=== PATIENT | female | born 1950 | race Caucasian/White ===

== ENCOUNTER → 2023-06-18 | Outpatient (CLI) | payer MEDICARE ==
[2023-06-18 12:26] LABS: INR 0.9 (<1.2); Prothrombin Time 9.9 sec (9.0-12.0)
--- NOTE | 2023-06-18 12:27 | XR ---
EXAMINATION TYPE: XR chest 2V DATE OF EXAM: 06/18/2023 COMPARISON: None HISTORY: 72-year-old female presurgical testing TECHNIQUE: PA and lateral views FINDINGS: The cardiomediastinal silhouette, aorta, and pulmonary vasculature are within normal limits. There ar e some strandy atelectasis at the inferior lingula. Mild hyperinflation. Otherwise, lungs and pleural spaces are clear. IMPRESSION: COPD. Some strandy atelectasis at the left base. Otherwise, no acute process seen.
[2023-06-18 16:35] LABS: Basophils # (A) 0.04 X 10*3/uL (0.00-0.10); Basophils % (A) 0.6 %; Eosinophils # (A) 0.17 X 10*3/uL (0.04-0.35); Eosinophils % (A) 2.6 %; HCT 38.4 % (37.2-46.3); HGB 12.3 d/dL (12.0-15.0); Lymphocytes # (A) 0.99 X 10*3/uL (0.90-5.00); Lymphocytes % (A) 15.1 %; MCH 30.9 pg (27.0-32.0); MCV 96.5 FL (80.0-97.0); Mean Platelet Volume 10.6 FL (9.5-12.2); Monocytes % (A) 9.1 %; NRBC Per 100 WBC 0 X 10*3/uL (0.00-0.01); Neutrophils # (A) 4.75 X 10*3/uL (1.80-7.70); Neutrophils % (A) 72.3 %; Platelet Count 144 X 10*3/uL (140-440); RBC 3.98 X 10*6/uL (4.10-5.20); WBC 6.57 X 10*3/uL (4.50-10.00)
[2023-06-18 16:45] LABS: BUN/Creat Ratio 21.25 Ratio (12.00-20.00); Calcium 9.6 mg/dL (8.7-10.3); Carbon Dioxide 25.1 mmol/L (21.6-31.8); Chloride 103 mmol/L (96-109); Glucose 112 mg/dL (70-110); Potassium 3.7 mmol/L (3.5-5.5); Sodium 141 mmol/L (135-145)
[2023-06-19 02:30] LABS: Appearance,Urine Clear (Clear); Bilirubin,Urine Negative (Negative); Blood,Urine Moderate (Negative); Color,Urine Yellow (Yellow); Ketones,Urine Negative (Negative); Nitrite,Urine Negative (Negative); PH, Urine 6.5; Specific Gravity,Urine 1.011 (1.001-1.030)
[2023-06-19 03:49] LABS: Bacteria,Urine None Seen (None Seen)
== END | disposition home or self-care (01) ==
LOC: LABPAT 10:24
PROVIDERS: ATTEND Orthopaedic Surgery Orthopaedic Surgery of the Spine
DX: Z01.818 Encounter for other preprocedural examination (principal); J44.9 Chronic obstructive pulmonary disease, unspecified; M43.16 Spondylolisthesis, lumbar region
CPT/HCPCS: 71046; 80048; 81001; 85025; 85610; 85730; 87070; 93005

== ENCOUNTER → 2023-07-06 | Outpatient (CLI) | payer MEDICARE ==
[2023-07-06 10:47] LABS: INR 0.9 (<1.2); Partial Thromboplastin Time 24.2 sec (22.0-30.0); Prothrombin Time 10.3 sec (10.0-12.5)
[2023-07-06 15:55] LABS: BUN/Creat Ratio 18.29 Ratio (12.00-20.00); Blood Urea Nitrogen 12.8 mg/dL (9.0-27.0); Calcium 9.6 mg/dL (8.7-10.3); Chloride 101 mmol/L (96-109); Glucose 117 mg/dL (70-110); Potassium 3.9 mmol/L (3.5-5.5); Sodium 138 mmol/L (135-145)
[2023-07-06 16:18] LABS: Basophils # (A) 0.03 X 10*3/uL (0.00-0.10); Basophils % (A) 0.5 %; Eosinophils # (A) 0.13 X 10*3/uL (0.04-0.35); Eosinophils % (A) 2.1 %; HCT 35.4 % (37.2-46.3); HGB 11.8 d/dL (12.0-15.0); Lymphocytes # (A) 1.18 X 10*3/uL (0.90-5.00); MCH 31.5 pg (27.0-32.0); MCHC 33.3 d/dL (32.0-37.0); MCV 94.4 FL (80.0-97.0); Mean Platelet Volume 10.2 FL (9.5-12.2); Monocytes # (A) 0.71 X 10*3/uL (0.20-1.00); Monocytes % (A) 11.4 %; NRBC Per 100 WBC 0 X 10*3/uL (0.00-0.01); Neutrophils # (A) 4.13 X 10*3/uL (1.80-7.70); Neutrophils % (A) 66.5 %; Platelet Count 161 X 10*3/uL (140-440); RBC 3.75 X 10*6/uL (4.10-5.20); RDW 14.2 % (11.5-14.5); WBC 6.21 X 10*3/uL (4.50-10.00)
[2023-07-06 16:36] LABS: Appearance,Urine Clear (Clear); Bilirubin,Urine Negative (Negative); Blood,Urine Moderate (Negative); Color,Urine Yellow (Yellow); Ketones,Urine Negative (Negative); Nitrite,Urine Negative (Negative); PH, Urine 6.5; Specific Gravity,Urine 1.006 (1.001-1.030); Urobilinogen,Urine 0.2 E.U./DL
[2023-07-06 17:06] LABS: Bacteria,Urine None Seen (None Seen)
== END | disposition home or self-care (01) ==
LOC: LABWHC1 09:02
PROVIDERS: ATTEND Orthopaedic Surgery Orthopaedic Surgery of the Spine
DX: Z01.812 Encounter for preprocedural laboratory examination (principal); M43.16 Spondylolisthesis, lumbar region
CPT/HCPCS: 36415; 80048; 81001; 85025; 85610; 85730; 86850; 86900; 86901

== ENCOUNTER 2023-07-15 05:37 | Observation (INO) | payer MEDICARE ==
[2023-07-10 10:40] VITALS: BMI 23.1
[~2023-07-15 05:37] MED LIST: ceFAZolin 1,000 MG in SODIUM CHLORIDE 0.9% IRRIGATIO 1,000 ML IRRIGATION PRN
[2023-07-15] MEDS ORDERED: LIDOCAINE 1% (10MG/ML) FOR IV START INTRADERMA PRN (05:51)
[2023-07-15] MEDS: LACTATED RINGERS 1,000 ML IV SCH ×3 (06:50→22:14)
[2023-07-15] MEDS: ONDANSETRON 4 MG/2 ML VIAL IVP ONE ×2 (07:10→14:48)
[2023-07-15] MEDS ORDERED: LIDOCAINE 1% INJ 10MG/ML (20 ML MDV) ONE (07:28)
[2023-07-15] MEDS ORDERED: fentaNYL (PF) 50 MCG/ML 2 ML AMP ONE (07:28)
[2023-07-15] MEDS ORDERED: HYDROmorphone (PF) 1 MG/ML ONE (07:28)
[2023-07-15] MEDS ORDERED: ePHEDrine 50 MG/ML 1 ML VIAL ONE (07:28)
[2023-07-15] MEDS ORDERED: PROPOFOL 10 MG/ML 20 ML VIAL IV ONE (07:28)
[2023-07-15] MEDS ORDERED: SUCCINYLCHOLINE CHLORIDE 200 MG/10 ML VIAL IV ONE (07:28)
[2023-07-15] MEDS ORDERED: ROCURONIUM 10 MG/ML (5 ML VIAL) IV ONE (07:28)
[2023-07-15] MEDS ORDERED: MIDAZOLAM 2 MG/2 ML VIAL ONE (07:28)
[2023-07-15] MEDS ORDERED: THROMBIN (BOVINE) 5,000 UNIT VIAL TOPICAL ONE (07:30)
[2023-07-15] MEDS ORDERED: LIDOCAINE 0.5%-EPI 1:200,000 50 ML VIAL SQ ONE (07:30)
[2023-07-15] MEDS ORDERED: GELATIN SPONGE,ABSORB (LARGE) 1 EACH SPONGE TOPICAL ONE (07:30)
[2023-07-15] MEDS ORDERED: LACTATED RINGERS 1,000 ML IV ONE (10:13)
[2023-07-15] MEDS ORDERED: BENZOCAINE/MENTHOL LOZENG 1 EACH LOZENGE MUCOUS MEM PRN (10:31)
[2023-07-15] MEDS ORDERED: HYDROmorphone 0.5 MG/0.5 ML SYRINGE IVP PRN (10:31)
[2023-07-15] MEDS ORDERED: HYDROmorphone 1 MG/ML 1 ML SYRINGE IVP PRN (10:31)
[2023-07-15] MEDS ORDERED: ONDANSETRON 4 MG/2 ML VIAL IVP PRN (10:31)
[2023-07-15] MEDS ORDERED: CYCLOBENZAPRINE 10 MG TAB PO PRN (10:31)
[2023-07-15] MEDS ORDERED: MAGNESIUM HYDROXIDE 2,400 MG/30 ML CUP PO PRN (10:31)
--- NOTE | 2023-07-15 10:39 | P.OP ---
Date of Procedure: 07/15/23 Preoperative Diagnosis: Grade 3 spondylolisthesis L4 5, degenerative disc disease, spinal stenosis, lower extremity radiculopathy, low back pain Postoperative Diagnosis: Same Anesthesia: GETA Pathology: none sent Condition: stable Disposition: PACU Description of Procedure: DESCRIPTION OF PROCEDURE(S): BRIEF OPERATIVE NOTE Preoperative Diagnosis: Grade 3 spondylolisthesis L4 5, degenerative disc disease, spinal stenosis, lower extremity radiculopathy, low back pain Postoperative Diagnosis: Same Procedure: Laminectomy and decompression L4 5 with wide bilateral foraminotomy for decompression on that for preparation for fusion Computer CT navigation aided Minimally invasive Posterior lateral decompression and fusion L4 5 Minimally invasive Transforaminal lumbar interbody fusion for a 360 fusion L4 5 Discectomy for decompression beyond that for preparation for fusion L4 5 Placement of interbody graft L4 5 Use of computer navigation for fusion Local autogenous bone grafting Aspiration of bone marrow from the vertebral body pedicle of L4 on the right Use of bone graft extenders Surgeon: Dr. Godinez Plant Maintenance Supervisor: Aj CARDOZA who is present throughout the entire the case persistence during positioning, dissection, exposure, visualization, and all crucial elements of the case as well as closure. Anesthesia: General anesthesia Estimated blood loss: Approximately 150 mL Complications: None apparent Components implanted: [id number] minimally invasive [place] pedicle screw system withscrews measuring 6.5 mm in diameter to rods one [place] interbody cage with 10 mL of osteo amp bio4 bone graft substitute and 30 mL of the BX bone fibers to supplement the local autogenous bone graft and bone marrow aspirate Disposition: To recovery room in good stable condition. OPERATIVE INDICATIONS The patient has had severe issues at their lower extremity in her lower back over the past several years with significant worsening over the past several months. Over the past few months the patient had pain at their back and their lower extremities. The patient is having severe radicular symptoms at their lower extremity with weakness. The patient is having significant pain in their back. They are unable to obtain any comfort. We did aggressive conservative treatment with medications therapy and interventional pain management however thery were not having any relief. The patient also showed evidence of a high- grade 3 listhesis with dynamic instability. The patient has been through conservative treatment. We discussed various treatment options including surgery, and the patient wishes to proceed with surgery We discussed the risk, patient's alternatives and benefits of surgery including but not limited to, risk of bleeding risk of infection, risk of need for further surgery, risk of decreased, loss of motion, muscle function, malunion nonunion, hardware failure, nerve damage, paralysis, heart attack, blindness and . They understood issues with the current pandemic and the possibility of exposure. OPERATIVE SUMMARY After discussing all the risks, patient alternatives and benefits at length, the patient elected to proceed with surgical intervention, signed informed consent, and presented for their procedure. The patient was seen and examined in the preoperative holding area and the surgical site was marked. The patient was given antibiotics and brought to the operating room. The patient was sedated and intubated by anesthesia in standard fashion. The patient was positioned on to the operating room table in a prone position on the appropriate frame which was well-padded and well molded. We were careful to pad any bony prominences and pressure points. We were careful to maintain the patient's cervical spine and good neutral alignment and position throughout. The patient was prepped and draped in a normal standard fashion. An appropriate timeout and keystone protocol performed. We were able to proceed with the surgery. The local wound area was infiltrated with local anesthetic. Over the right iliac crest I was able to make small stab incisions and establish a guidepin screw fixation to the iliac crest 2. I was able place the computer referencing device over the guidepins to establish an appropriate reference point for the Ziem CT navigation. We then were able to place patient in an appropriate drape and do a navigation spin for visualization and 3-D reconstruction of the lumbar spine. I was able utilize C-arm guidance and navigation to establish appropriate position over the pedicles bilaterally at the appropriate levels . With the appropriate levels confirmed at L4 and L5 and the listhesis easily identifiablewas able to make small incisions over the appropriate pedicle sites bilaterally. Utilizing the computer navigation device I was able to establish bony landmarks at the right iliac crest for a bony reference point for the navigation device. I was able to establish a Jamshidi needle over the lateral aspect of the pedicle and advanced the trocar into the pedicle being careful not to breech superiorly inferiorly medially or laterally using computer navigation device. Position was confirmed regularly with AP and lateral images on C-arm and with the computer navigation device at the appropriate levels bilaterally. I was able to establish the trocar into the pedicle appropriately into the posterior aspect of the vertebral body bilaterally at the appropriate levels of L4 and L5 bilaterally . This was done at each of the pedicle positions and each of the vertebrae. At the superior vertebrae I was able to take approximately 25 mL of bone aspiration for use later in the case to supplement the allograft and autograft bone. I was able place the guidewire into the trocar and into the vertebral body appropriately under C-arm guidance. Dissection was taken down over the wire to the appropriate starting position for the screw placed. The appropriate length screw was chosen, threaded over the guidewire and screwed appropriately into the pedicle and vertebral body under C-arm guidance in excellent alignment and position with good bony purchase. This is done at each of the screw sites at t he appropriate levels at L4 and L5 bilaterally .. With the screws intact I extended the incision to connect the screw hole sites bilaterally to address the facet joints and do adequate bilateral decompression with laminectomy and partial facetectomy on left and full facetectomy on the right . I dissected down to establish access over the pars and lamina to the base of the spinous process. I was able to expose the facet joint. The capsule the facet was taken down and showed some facet arthrosis at the joint. I was able to use a combination of curettes and Kerrison rongeurs and a high-speed drill to take down the facet joint and do a facetectomy. I was able get excellent foraminal decompression and central decompression with undermining across midline to perform a laminectomy centrally and contralaterally. As able get good central decompression. The ligamentum flavum was taken down to further decompress centrally and at bilateral neural foramen. I was able to expose the disc space and visualize the traversing nerve root. Note was made of some disc protrusion and disc herniation that was abutting the traversing nerve root at the level causing further compression of the nerve root. I was able to establish a annulotomy at the appropriate level of L4 easily identifying the step-off at that level with the listhesisprotecting soft tissue and neural structures. Note was made of some disc desiccation at the disc. I performed a complete discectomy with accommodation of curettes and rasps and scrapers. I was able get good endplate preparation at the disc space. I sized for the appropriate size interbody spacer protecting the soft tissue and neural structures. The wound was copiously irrigated and suctioned dry. There is no evidence of any dural tear or leak. I was able to pack the disc space with local autogenous bone graft as well as a small amount of bone graft which was also placed into the interbody cage itself. Protecting the soft tissue structures and neural structures I was able place the interbody cage in good alignment and good position with good fit and fill at the interbody space. It was seated well with the interbody device at L4 5 without any protrusion beyond the L4 5 posterior wall. Position was confirmed with C-arm guidance. Good hemostasis maintained. There is no evidence of any dural tear or leak. The wound was irrigated and suctioned dry. With the hardware intact, intraoperative C-arm imaging was again taken which showed good alignment and position of the hardware at the appropriate levels at L4 and L5 . We were then able to measure, contour and place the rods and appropriate hardware bilaterally. I was able to place capcrews, tighten them down, and torque them with the torque screwdriver appropriately. With this intact I was able to place the local autogenous bone graft with additional bone graft enhancer as necessary into the posterior lateral gutters over the decorticated transverse processes and facet joints on the contralateral side. We some reduction of the listhesis and good stability at the L4 5 space. The remainder of the bone graft was placed over the facet joint on the contralateral side after taking down the facet joint capsule. With the bone graft intact, a stable construct, and good decompression at the appropriate levels, we were able to proceed with closure. Good hemostasis was maintained. There is no evidence of dural tear or leak. The fascia was closed for a watertight closure. he subcuticular tissue was closed with absorbable suture. The wound was cleaned and dried and dressed with the appropriate dressing. The drapes were broken down. The patient was gently rolled back onto their hospital bed being careful to maintain their cervical spine and good neutral alignment and position. They were woken up by anesthesia, extubated, and brought to the recovery room in good stable condition. The patient will be admitted to the hospital for appropriate postoperative care, medical management and monitoring. We will continue to follow them closely about the postoperative course.
[2023-07-15] MEDS: HYDROmorphone 0.5 MG/0.5 ML SYRINGE IVP PRN ×4 (10:50→11:53)
--- NOTE | 2023-07-15 10:57 | XR ---
EXAMINATION TYPE: XR lumbar spine 2 or 3V, FL guidance operating room DATE OF EXAM: 07/15/2023 Comparison: None Clinical History: 72-year-old female L4-L5 Fusion Findings: L4-L5 Fusion 18sec fluoro time Dr. Godinez 1274.31 mGycm2 DAP 4 views Impression: Intraoperative fluoroscopy as above.
[2023-07-15] MEDS: SODIUM CHLORIDE 0.9% 1,000 ML IV SCH ×2 (14:48→23:49)
--- NOTE | 2023-07-15 19:10 | P.CONS ---
History of Present Illness - Reason for Consult Consult date: 07/15/23 Medical Management Requesting physician: Slava Godinez - History of Present Illness History of Presenting Illness: Patient is a very pleasant 72-year-old female with past medical history of osteoarthritis and hepatitis C previously treated. She is currently admitted under orthopedic surgery team status post elective laminectomy and decompression of L4 through L5 with wide bilateral foraminotomy for decompression and fusion. Surgical procedure was completed earlier today by Dr. Godinez. We have been consulted for medical management throughout patient's hospitalization. Patient seen and fully evaluated shortly after arrival to room 450. Patient was sleeping upon arrival to the room easily awoken via verbal stimuli. Patient reports minimal postoperative pain. She denies having any headache, lightheadedness, dizziness, chest pain, palpitations, shortness of breath, cough or congestion, abdominal pain, nausea, vomiting, or experiencing any numbness/tingling/weakness in her extremities. Patient denies having any history of DVTs or pulmonary emboli. Currently vital signs are stable with blood pressure 137/79, heart rate 76, respiratory rate 17, temperature 97.5F, SpO2 of 97% on room air. Review of systems: Pertinent positives and negatives as discussed in HPI, a complete review of systems was performed and all other systems are negative. Physical exam: Vital signs reviewed and stable. General: Nontoxic, no distress and appears stated age. Derm: Skin warm and dry, normal coloration for ethnicity. Head: Atraumatic, normocephalic and symmetric. Eyes: EOMs intact, no lid lag, and anicteric sclera Mouth: no lip lesions, mucus membranes moist Cardiovascular: regular rate and rhythm with normal S1S2, systolic murmur, positive posterior tibial pulses bilaterally, and cap refill < 2 seconds. Lungs: Respirations even, regular, and unlabored on room air. Lungs CTA bilaterally, no rhonchi, no rales, no wheezing, and no accessory muscle usage. Abdominal: soft, nontender to palpation, no guarding, no appreciable organomegaly. Kolb catheter in place.. Ext: ROM intact. No gross muscle atrophy, no edema, no contractures Neuro: Speech clear, face symmetrical and CN II-XII grossly intact with no noted focal neuro deficits Psych: Alert and oriented to person, place, time, and situation. Appropriate and pleasant affect. Assessment and Plan of Care: History of hepatitis C -Status post treatment, will review liver enzymes. Order placed for CMP with a.m. labs. Osteoarthritis Status post laminectomy and decompression of L4 through L5 with wide bilateral foraminotomy for decompression and fusion. -Management per primary admitting orthospine surgery team including DVT prophylaxis, wound/dressing/drain management, and pain management. Data reviewed: -Vital signs reviewed and stable with blood pressure 137/79, heart rate 76, respiratory rate 17, temperature 97.5F, SpO2 of 97% on room air. Thank you for allowing us to participate in the care of this pleasant patient. Do not hesitate to contact us with questions. Someone can be reached from the [facility] hospitalist group all hours of the day at [phone] or via [email or web address]. Patient was seen independently by Nurse Practitioner. This document was prepared using [employer] dictation software. Please allow for errors in hydrometer tester while rare they do occur. Past Medical History Past Medical History: Liver Disease, Osteoarthritis (OA) Additional Past Medical History / Comment(s): Hx pericarditis 30 yrs ago. Poor circulation in lower legs. Hx Hepatitis C a few yrs ago, received treatment and now resolved. History of Any Multi-Drug Resistant Organisms: None Reported Additional Past Surgical History / Comment(s): Procedure for pericarditis. Past Anesthesia/Blood Transfusion Reactions: No Reported Reaction Past Psychological History: No Psychological Hx Reported Smoking Status: Former smoker Past Alcohol Use History: None Reported Additional Past Alcohol Use History / Comment(s): Quit smoking 40 yrs ago. Past Drug Use History: Marijuana Additional Drug Use History / Comment(s): Marijuana use daily. Aware to hold 24 hrs prior to procedure. - Past Family History Sister(s) Family Medical History: Cancer Additional Family Medical History / Comment(s): Eye cancer. Medications and Allergies Home Medications Medication Instructions Recorded Confirmed Type No Known Home Medications 07/10/23 07/15/23 History Allergies Allergy/AdvReac Type Severity Reaction Status Date / Time No Known Allergies Allergy Verified 07/15/23 06:44 Physical Exam Vitals: Vital Signs Temp Pulse Pulse Resp BP BP Pulse Ox 07/15/23 12:46 73 16 123/58 100 07/15/23 12:30 69 16 118/58 100 07/15/23 12:15 71 16 118/58 100 07/15/23 12:00 71 16 115/57 100 07/15/23 11:45 77 16 132/63 97 07/15/23 11:32 77 16 119/59 97 07/15/23 11:15 75 16 125/61 97 07/15/23 11:00 77 16 138/71 97 07/15/23 10:46 85 16 138/71 97 07/15/23 10:33 97.5 F L 84 14 141/75 100 07/15/23 06:57 97.9 F 70 18 165/70 178/77 98 Intake and Output 07/14/23 07/15/23 07/15/23 22:59 06:59 14:59 Intake Total 1151 Output Total 590 Balance 561 Intake: IV 1151 Output: Urine 440 Estimated Blood Loss 150 Other: Weight 61.7 kg
[2023-07-16] MEDS: HYDROcodone/APAP 5-325MG 1 EACH TAB PO PRN ×3 (01:12→20:51)
[2023-07-16] MEDS: SENNOSIDES-DOCUSATE SODIUM 1 EACH TAB PO SCH (08:44)
--- NOTE | 2023-07-16 10:26 | P.PN ---
Progress Note - Text Progress Note Date: 07/16/23 Postoperative day #1 Patient is seen and examined today at bedside. The patient has some pain around the surgical site as expected. Pain is being controlled with medication. She is doing very nicely thus far and is happy with results thus far Physical Exam Afebrile with stable vital signs Abdomen is soft nontender. Chest has good excursion deep and space expiration The incision site is clean dry and intact. No erythema there is no purulence. Extremities have not had neurologic change from prior to surgery. She has sustained a/plantar flexion and EHL intact Calves and thighs were soft nontender without evidence of DVT. Assessment/Plan Postoperative day #1 status post minimally invasive decompression fusion L45 for her grade 3 spondylolisthesis with stenosis and lower extremity radiculopathy Patient is progressing as expected from the surgery. She is making good progress and could potentially be ready for discharge home tomorrow if she is able to mobilize well We will continue to increase the patient's mobilization with therapy. We will continue pain control with oral or IV medications. We'll continue to follow patient closely.
[2023-07-16 11:52] LABS: Basophils # (A) 0.02 X 10*3/uL (0.00-0.10); Basophils % (A) 0.1 %; Eosinophils # (A) 0 X 10*3/uL (0.04-0.35); Eosinophils % (A) 0 %; HCT 32.1 % (37.2-46.3); HGB 10.3 g/dL (12.0-15.0); Lymphocytes # (A) 0.81 X 10*3/uL (0.90-5.00); Lymphocytes % (A) 4.8 %; MCH 31.2 pg (27.0-32.0); MCHC 32.1 g/dL (32.0-37.0); MCV 97.3 FL (80.0-97.0); Mean Platelet Volume 10.4 FL (9.5-12.2); Monocytes # (A) 1.47 X 10*3/uL (0.20-1.00); Monocytes % (A) 8.6 %; NRBC Per 100 WBC 0 X 10*3/uL (0.00-0.01); Neutrophils % (A) 85.9 %; Platelet Count 155 X 10*3/uL (140-440); RDW 14.1 % (11.5-14.5)
[2023-07-16] MEDS: SODIUM CHLORIDE 0.9% 1,000 ML IV SCH (12:14)
[2023-07-16 13:49] LABS: ALT 19 U/L (4-34); AST 35 U/L (14-36); African American GFR (CKD) >90 (>60 ml/min/1.73 sqM); Albumin 3.9 g/dL (3.5-5.0); Albumin/Globulin Ratio 1.6; Alkaline Phosphatase 41 U/L (38-126); Anion Gap 10 mmol/L; Blood Urea Nitrogen 15 mg/dL (7-17); Calcium 8.4 mg/dL (8.4-10.2); Carbon Dioxide 26 mmol/L (22-30); Chloride 101 mmol/L (98-107); Globulin 2.5 g/dL; Glucose 137 mg/dL (74-99); Non-African American GFR(CKD) 89 (>60 ml/min/1.73 sqM); Potassium 3.8 mmol/L (3.5-5.1); Sodium 137 mmol/L (137-145); Total Bilirubin 0.8 mg/dL (0.2-1.3); Total Protein 6.4 g/dL (6.3-8.2)
--- NOTE | 2023-07-16 14:10 | P.PN ---
Subjective Progress Note Date: 07/16/23 History of Presenting Illness: Patient is a very pleasant 72-year-old female with past medical history of osteoarthritis and hepatitis C previously treated. She is currently admitted [facility] orthopedic surgery team status post elective laminectomy and decompression of L4 through L5 with wide bilateral foraminotomy for decompression and fusion. Surgical procedure was completed earlier today by Dr. Godinez. We have been consulted for medical management throughout patient's hospitalization. Physical exam: Patient seen and fully evaluated at bedside this morning. Patient doing well this morning. She reports controlled postoperative pain and denies having any numbness/tingling/weakness. Patient's Kolb catheter was just removed and patient has not yet urinated. Patient awaiting evaluation as she has not been out of bed with nursing staff as of yet. Once patient urinating without any difficulties and is up and out of bed and continues to do well she will likely be medically stable for discharge within the next 24 hours. Vital signs reviewed and stable. General: Nontoxic, no distress and appears stated age. Derm: Skin warm and dry, normal coloration for ethnicity. Head: Atraumatic, normocephalic and symmetric. Eyes: EOMs intact, no lid lag, and anicteric sclera Mouth: no lip lesions, mucus membranes moist Cardiovascular: regular rate and rhythm with normal S1S2, systolic murmur, positive posterior tibial pulses bilaterally, and cap refill < 2 seconds. Lungs: Respirations even, regular, and unlabored on room air. Lungs CTA bilaterally, no rhonchi, no rales, no wheezing, and no accessory muscle usage. Abdominal: soft, nontender to palpation, no guarding, no appreciable organomegaly. Ext: ROM intact. No gross muscle atrophy, no edema, no contractures Neuro: Speech clear, face symmetrical and CN II-XII grossly intact with no noted focal neuro deficits Psych: Alert and oriented to person, place, time, and situation. Appropriate and pleasant affect. Assessment and Plan of Care: Acute postoperative blood loss anemia -Stable and expected finding with postoperative hemoglobin of 10.3 and preoperative hemoglobin of 11.8. -There is no signs of active bleeding, no need for transfusion or any further interventions at this time. No need to repeat. Postoperative leukocytosis -WBC count 17.00, preoperative labs show WBC count of 6.21. -Leukocytosis is believed to be reactive secondary to surgical procedure. No signs of infection and no need for further intervention at this time. History of hepatitis C -Status post treatment, liver enzymes reviewed and are unremarkable. Osteoarthritis Status post laminectomy and decompression of L4 through L5 with wide bilateral foraminotomy for decompression and fusion. -Management per primary admitting orthospine surgery team including DVT prophylaxis, wound/dressing/drain management, and pain management. Data reviewed: -Vital signs reviewed and stable with blood pressure 128/70, heart rate 72, respiratory rate 19, temp 98.0F, SpO2 of 97% on room air. -Postoperative labs reviewed and compared with preoperative labs. CBC showing leukocytosis with WBC count of 17.00 with preoperative WBC count of 6.21 and acute blood loss anemia with hemoglobin of 10.3 and preoperative hemoglobin of 11.8. BMP and liver profile were unremarkable. Thank you for allowing us to participate in the care of this pleasant patient. Do not hesitate to contact us with questions. Someone can be reached from the [facility] Hospitalist group all hours of the day at [phone] or via perfect serve. Patient was seen independently by Nurse Practitioner. This document was prepared using [employer] dictation software. Please allow for errors in target man while rare they do occur. Objective - Vital Signs Vital signs: Vital Signs Temp 98.0 F 07/16/23 07:28 Pulse 72 07/16/23 07:28 Resp 19 07/16/23 07:28 BP 128/70 07/16/23 07:28 Pulse Ox 97 07/16/23 07:59 FiO2 Intake & Output 07/15/23 07/16/23 07/16/23 18:59 06:59 18:59 Intake Total 1151 Output Total 590 Balance 561 Weight 61.7 kg Intake: IV 1151 Output: Urine 440 Estimated Blood Loss 150 - Labs CBC & Chem 7: 07/16/23 06:20 07/16/23 06:20
[2023-07-16] MEDS ORDERED: METOPROLOL TARTRATE 50 MG TAB PO STA (17:53)
[2023-07-17] MEDS: LACTATED RINGERS 1,000 ML IV SCH (00:20)
[2023-07-17] MEDS: SODIUM CHLORIDE 0.9% 1,000 ML IV SCH (00:32)
[2023-07-17] MEDS: HYDROcodone/APAP 5-325MG 1 EACH TAB PO PRN ×3 (03:56→14:18)
[2023-07-17] MEDS: SENNOSIDES-DOCUSATE SODIUM 1 EACH TAB PO SCH ×2 (07:37→07:38)
--- NOTE | 2023-07-17 08:52 | P.PN ---
Progress Note - Text Progress Note Date: 07/16/23 Late entry Was called to bedside by RN on 07/26/23 at 5:45 PM with reports that the patient's heart rate was rapid ranging from 130s to 150s. Order placed for stat EKG and Went to bedside to assess, patient was found to be in atrial fibrillation/flutter with RVR. EKG completed and reviewed showing atrial flutter with RVR at 138 bpm. Patient was asymptomatic denying any headache, lightheadedness, dizziness, chest pain, palpitations, shortness of breath, exertional dyspnea, or experiencing any numbness/tingling/weakness/swelling in her extremities. Order placed for telemetry monitoring and patient given metoprolol 50 mg orally 1 dose as patient was on MedSurg unit and they were unable to start drip. Monitor patient closely and assured oral dose controlled heart rate and decided not to transfer patient to stepdown unit for Cardizem infusion. Patient is Day 1 (24 hours) postop L4 through L5 laminectomy and decompression with wide bilateral foraminotomy for decompression and fusion. She does not have a history of atrial fibrillation/flutter. Will not start patient on anticoagulation at this time secondary to being 24-hour postop from lumbar surgery, will defer to cardiology to evaluate tomorrow morning and appreciate recommendations from street engineer and orthospine surgery team to determine if patient is cleared to begin anticoagulation. Order placed for echocardiogram.
[2023-07-17] MEDS ORDERED: APIXABAN 5 MG TAB PO SCH (09:00)
[2023-07-17] MEDS ORDERED: METOPROLOL TARTRATE 25 MG TAB PO SCH (09:00)
--- NOTE | 2023-07-17 09:10 | P.DS ---
Providers Date of admission: 07/15/23 08:00 Expected date of discharge: 07/17/23 Attending physician: Slava Godinez Consults: 07/15/23 10:31 Consult Physician Routine Consulting Provider: Sary Mejia Consult Reason/Comments: Medical management Do you want consulting provider notified?: Yes 07/16/23 17:53 Consult Physician Routine Consulting Provider: Emanuel Hinkle Consult Reason/Comments: postoperative tachycardia, poss a flutter Do you want consulting provider notified?: Yes Primary care physician: Kyra Andersen, DO - Discharge Diagnosis(es) (1) Spondylolisthesis, grade 3 Current Visit: Yes Status: Acute (2) Radiculopathy with lower extremity symptoms Current Visit: Yes Status: Acute (3) Lumbar stenosis Current Visit: Yes Status: Acute (4) Lumbar degenerative disc disease Current Visit: Yes Status: Acute (5) Atrial fibrillation Current Visit: Yes Status: Acute (6) Hepatitis C Current Visit: Yes Status: Acute (7) History of pericarditis Current Visit: Yes Status: Acute Hospital Course: This is a pleasant 72-year-old female who presented with L4-5 grade 3 spondylolisthesis, lumbar degenerative disc disease, lower extremity radiculopathy, low back pain, and lumbar spinal stenosis who failed outpatient conservative therapy. She was admitted for an L4-5 minimally invasive posterior lateral decompression and fusion with transforaminal lumbar interbody fusion. The patient tolerated the procedure well and did well postoperatively. She states her back pain has been adequate controlled. She has some left lower extremity leg pain but feels it is also laterally controlled. She's been ambulating well with the assistance of physical therapy. Patient feels her symptoms are stable and she would like to be discharged home today. She does have family coming to visit with help her at home. She is very happy with her progress postoperatively. She have an episode of atrial fibrillation yesterday. She had an echocardiogram first performed this morning. She was seen at the bedside by cardiology this morning. Cardiology is planning for anticoagulation but also plans to clear the patient for discharge home today. Patient does have a history of pericarditis 30 years ago without any complications since. Condition on day of discharge stable. Patient will be discharged home. Patient was cleared preoperatively for surgery by Dr. Andersen. Patient currently denies any nausea, vomiting, fever, or chills. Patient is eating and voiding freely without difficulty. She is passing gas without any abdominal discomfort. Surgical dressings have been removed over the lumbar spine and right iliac crest. Surgical sites are clean, dry, and intact. Patient may shower without a dressing intact. Patient should refrain from driving until at least after their first follow-up appointment in the office. Patient should avoid excessive bending, lifting, and twisting; no lifting greater than 10 pounds. MAPS has been reviewed today. An "Opiod Start Talking" Form has been signed and placed in the patient's chart. A prescription has been written for hydrocodone 5 mg/325 mg, 1 tab, every 6 hours, as needed for acute pain, dispensed #32. Patient is also given a prescription for baclofen 10 mg, 1, 3 times a day, as needed for muscle spasm, dispensed #60. She is given a prescription for Senokot-S, 1 tab, twice a day, as needed for constipation, dispensed #60. Medications are sent to the [facility] pharmacy located with in [facility] per request of the patient. Patient's other medical diagnoses include history of hepatitis C. Physical Exam on day of discharge: Patient is awake, alert, and oriented 3 Vital signs stable Good chest excursion with deep inspiration and expiration Abdomen soft nontender No signs or symptoms of DVT; no calf pain Extensor hallucis longus, plantarflexion, and dorsiflexion positive sustained bilateral lower extremities Surgical dressings had been removed over the lumbar spine and right iliac crest Incisions sites are clean, dry, and intact; no erythema, purulence, or signs of infection No significant pain with palpation over the surgical sites Procedures: L4-5 minimally invasive posterior lateral decompression and fusion with transforaminal lumbar interbody fusion Patient Condition at Discharge: Stable Plan - Discharge Summary Discharge Rx Participant: No New Discharge Prescriptions: New Metoprolol Tartrate [Lopressor] 25 mg PO BID 90 Days #180 tab HYDROcodone/APAP 5-325MG [[place] 5] 1 each PO Q4HR PRN #32 tab PRN Reason: Pain Sennosides-Docusate Sodium [Senokot-S] 1 tab PO BID PRN #60 tablet PRN Reason: Constipation Apixaban [Eliquis] 5 mg PO BID 90 Days #180 tab Baclofen 10 mg PO TID PRN #60 tab PRN Reason: Spasms Discharge Medication List Apixaban [Eliquis] 5 mg PO BID 90 Days #180 tab 07/17/23 [Rx] Baclofen 10 mg PO TID PRN #60 tab 07/17/23 [Rx] HYDROcodone/APAP 5-325MG [[place] 5] 1 each PO Q4HR PRN #32 tab 07/17/23 [Rx] Metoprolol Tartrate [Lopressor] 25 mg PO BID 90 Days #180 tab 07/17/23 [Rx] Sennosides-Docusate Sodium [Senokot-S] 1 tab PO BID PRN #60 tablet 07/17/23 [Rx] Follow up Appointment(s)/Referral(s): Liane Medina MD [STAFF PHYSICIAN] - 2 Weeks Aj Sanchez PAC [PHYSICIAN UNIT AIDE] - 2 Weeks (Patient may follow-up with Aj Sanchez PA-C or Dr. Chuy Godinez at [facility] in 2-3 weeks following discharge. ) Patient Instructions/Handouts: Atrial Flutter (DC), A-fib (Atrial Fibrillation) (DC) Activity/Diet/Wound Care/Special Instructions: Activity: 1. Patient may shower without a dressing at this time 2. Patient should refrain from driving until at least after their first follow- up appointment in the office. 3. Patient should avoid excessive bending, twisting, lifting; avoid overhead lifting; no lifting greater than 10 pounds 4. Take medications as prescribed 5. Patient should avoid anti-inflammatory medications 6. Do not soak in tub Diet: Heart healthy and carb consistent diet. Avoid salts, or foods with hidden salts such as canned or boxed foods and frozen dinners. Extra salt makes your heart work harder and traps the fluid in your body for longer. Special Instructions: Take all of your medications as directed and remember to keep all of your doctor's appointments and follow-up as needed. You are also being discharged home on a blood thinner, Eliquis. This is very important to take daily as directed until otherwise advised by your lead software developer-Dr. Medina. Being that you are being placed on a blood thinner it is very important to watch for any signs of bleeding and notify your doctor immediately if you notice any bleeding. It is also important to remove any trip hazards such as rugs or loose extension cords from your home to prevent unnecessary falls and if you do experience a fall or head injury, it is extremely important to be evaluated by a medical provider immediately to ensure no internal bleeding. Thank you for allowing us to participate in your care, it was truly a pleasure having you for our patient!!! Discharge Disposition: HOME SELF-CARE
[2023-07-17 09:14] VITALS: BP 126/77; PULSE 74; RESP 19; TEMP 97.6
--- NOTE | 2023-07-17 10:00 | CA ---
Transthoracic Echo Report Name: Deborah Penn Age: 72 Gender: F : 1950 Exam Date: 07/17/2023 08:52 Exam Location: [facility] Ht (in): 64 Wt (lb): 136 Ordering Physician: Jerald Sandoval MD Attending/Referring Phys: Manager Spa Stewart Dolan Procedure CPT: Indications: afib/flutter Cardiac Hx: Technical Quality: Fair Contrast 1: Total Dose (mL): Contrast 2: Total Dose (mL): MEASUREMENTS (Male / Female) Normal Values 2D ECHO LV Diastolic Diameter PLAX 4.4 cm 4.2 - 5.9 / 3.9 - 5.3 cm LV Systolic Diameter PLAX 2.9 cm IVS Diastolic Thickness 0.8 cm 0.6 - 1.0 / 0.6 - 0.9 cm LVPW Diastolic Thickness 0.8 cm 0.6 - 1.0 / 0.6 - 0.9 cm LV Relative Wall Thickness 0.4 RV Internal Dim ED PLAX 2.5 cm LVOT Diameter 2.0 cm Aortic Root Diameter 3.1 cm LA Systolic Diameter LX 3.4 cm 3.0 - 4.0 / 2.7 - 3.8 cm LV Diastolic Volume MOD BP 46.7 cm??? 67 - 155 / 56 - 104 cm??? LV Systolic Volume MOD BP 14.6 cm??? 22 - 58 / 19 - 49 cm??? LV Ejection Fraction MOD BP 68.8 % >= 55 % LV Cardiac Index MOD BP 1476.7 cm???/min???m??? LV Diastolic Volume MOD 4C 45.3 cm??? LV Systolic Volume MOD 4C 12.9 cm??? LV Ejection Fraction MOD 4C 71.5 % LV Cardiac Index MOD 4C 1486.6 cm???/min???m??? LV Diastolic Length 4C 6.5 cm LV Systolic Length 4C 4.9 cm LV Diastolic Volume MOD 2C 45.5 cm??? LV Systolic Volume MOD 2C 16.1 cm??? LV Ejection Fraction MOD 2C 64.5 % LV Cardiac Index MOD 2C 1346.9 cm???/min???m??? LV Diastolic Length 2C 6.2 cm LV Systolic Length 2C 4.8 cm LA Volume 34.9 cm??? 18 - 58 / 22 - 52 cm??? LA Volume Index 20.8 cm???/m??? 16 - 28 cm???/m??? DOPPLER AV Peak Velocity 154.5 cm/s AV Peak Gradient 9.6 mmHg AI Peak Velocity 378.2 cm/s AI Peak Gradient 57.2 mmHg AI Pressure Half Time 486.7 ms LVOT Peak Velocity 112.6 cm/s LVOT Peak Gradient 5.1 mmHg LVOT Velocity Time Integral 24.4 cm LVOT Stroke Volume 74.1 cm??? LVOT Stroke Volume Index 44.6 ml/m??? LVOT Cardiac Index 3403.9 cm???/min???m??? AV Area Cont Eq pk 2.2 cm??? MV Peak Velocity 147.3 cm/s MV Peak Gradient 8.7 mmHg MV Mean Velocity 67.3 cm/s MV Mean Gradient 2.4 mmHg MV Velocity Time Integral 42.2 cm MR Peak Velocity 468.4 cm/s MR Peak Gradient 87.8 mmHg Mitral E Point Velocity 105.8 cm/s Mitral A Point Velocity 69.1 cm/s Mitral E to A Ratio 1.5 MV Deceleration Time 149.3 ms TR Peak Velocity 222.0 cm/s TR Peak Gradient 19.7 mmHg Right Ventricular Systolic Press 24.7 mmHg PV Peak Velocity 97.3 cm/s PV Peak Gradient 3.8 mmHg FINDINGS Left Ventricle Normal LV size and wall thickness.normal left ventricular wall motion. Left ventricular ejection fraction is estimated at 55-60 %. Right Ventricle Normal right ventricular size. RVSP= 25mmHg. Right Atrium Normal right atrial size. Left Atrium Normal left atrial size. Mitral Valve Mild mitral annular calcification. Mild MR. Aortic Valve Trileaflet aortic valve. Mild to moderate AI.aortic valve sclerosis. Tricuspid Valve Structurally normal tricuspid valve. Mild TR Pulmonic Valve Pulmonic valve not well visualized. No pulmonic regurgitation. Pericardium No pericardial effusion. Aorta Normal size aortic root and proximal ascending aorta. CONCLUSIONS 1. Normal left ventricular size and systolic function 2. Mild mitral and tricuspid regurgitation with [id number] aortic regurgitation. Previewed by: Dr. Liane Medina MD (Electronically Signed) Final Date: 17 July 2023 09:59
--- NOTE | 2023-07-17 10:15 | P.CRDCN ---
History of Present Illness History of present illness: HISTORY OF PRESENT ILLNESS: This is a 72-year-old female with a past medical history significant for osteoarthritis, former nicotine dependence, pericarditis, and pericardial effusion with window approximately 30 years ago. 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 We have been asked to see the patient in consultation for atrial fibrillation. Patient examined at the bedside. Patient is status post L4-5 minimally invasive posterior lateral decompression and fusion with transforaminal lumbar interbody fusion with Dr. Godinez. Yesterday evening, patient went into A. fib with RVR. She was given a dose of metoprolol. She has since converted to sinus mechanism and is maintaining sinus mechanism this morning. The patient does report having palpitations yesterday. She denies a history of atrial fibrillation. She does report having occasional palpitations in the past. Patient's vital signs are stable this morning. * EKG reveals A. fib with RVR * Laboratory data: Significant for troponin negative 3 * Current home cardiac medications include none. * Echocardiogram obtained revealing ejection fraction 55-60%, mild MR, mild TR, mild to moderate aortic regurgitation REVIEW OF SYSTEMS: At the time of my exam: CONSTITUTIONAL: Denies fever or chills. HEENT: Denies blurred vision, vision changes, or eye pain. Denies hemoptysis CARDIOVASCULAR: Denies chest pain. Denies orthopnea. Denies PND. Denies palpitations RESPIRATORY: Denies shortness of breath. GASTROINTESTINAL: Denies abdominal pain. Denies nausea or vomiting. HEMATOLOGIC: Denies bleeding disorders. GENITOURINARY: Denies any blood in urine. SKIN: Denies pruitis. Denies rash. PHYSICAL EXAM: VITAL SIGNS: Reviewed. GENERAL: Well-developed in no acute distress. HEENT: Head is normocephalic. Pupils are equal, round. Sclerae anicteric. Mucous membranes of the mouth are moist. Neck supple. No JVD or thyromegaly LUNGS: Respirations even and unlabored. Lungs essentially clear to auscultation bilaterally. HEART: Regular rate and rhythm. S1 and S2 heard. Systolic murmur noted. ABDOMEN: Soft. Nondistended. Nontender. EXTREMITIES: Normal range of motion. No clubbing or cyanosis. Peripheral pulses intact. No lower extremity edema NEUROLOGIC: Awake and alert. Oriented x 3. ASSESSMENT: Status post L4-5 minimally invasive posterior lateral decompression and fusion with transforaminal lumbar interbody fusion New onset paroxysmal atrial fibrillation with RVR, CHADSVASC score of 2 Osteoarthritis Former nicotine dependence History of pericardial effusion and pericarditis with pericardial window, approximately 30 years ago per patient PLAN: 2-D echo obtained and reviewed Check TSH Begin metoprolol tartrate 25 mg twice a day Begin Eliquis 5 mg twice a day. Patient has been cleared to start anticoagulation from orthopedic services. Patient is stable for discharge home today from a cardiac standpoint She is to follow up in the office and 2-3 weeks. Nurse practitioner note has been reviewed by physician. Signing provider agrees with the documented findings, assessment, and plan of care. Past Medical History Past Medical History: Liver Disease, Osteoarthritis (OA) Additional Past Medical History / Comment(s): Hx pericarditis 30 yrs ago. Poor circulation in lower legs. Hx Hepatitis C a few yrs ago, received treatment and now resolved. History of Any Multi-Drug Resistant Organisms: None Reported Additional Past Surgical History / Comment(s): Procedure for pericarditis. Past Anesthesia/Blood Transfusion Reactions: No Reported Reaction Past Psychological History: No Psychological Hx Reported Smoking Status: Former smoker Past Alcohol Use History: None Reported Additional Past Alcohol Use History / Comment(s): Quit smoking 40 yrs ago. Past Drug Use History: Marijuana Additional Drug Use History / Comment(s): Marijuana use daily. Aware to hold 24 hrs prior to procedure. - Past Family History Sister(s) Family Medical History: Cancer Additional Family Medical History / Comment(s): Eye cancer. Medications and Allergies Home Medications Medication Instructions Recorded Confirmed Type Apixaban [Eliquis] 5 mg PO BID 90 Days #180 tab 07/17/23 Rx Baclofen 10 mg PO TID PRN #60 tab 07/17/23 Rx HYDROcodone/APAP 5-325MG [[place] 5] 1 each PO Q4HR PRN #32 tab 07/17/23 Rx Metoprolol Tartrate [Lopressor] 25 mg PO BID 90 Days #180 tab 07/17/23 Rx Sennosides-Docusate Sodium 1 tab PO BID PRN #60 tablet 07/17/23 Rx [Senokot-S] Allergies Allergy/AdvReac Type Severity Reaction Status Date / Time No Known Allergies Allergy Verified 07/15/23 06:44 Physical Exam Vitals: Vital Signs Temp Pulse Resp BP BP Pulse Ox 07/17/23 02:00 98.1 F 71 113/72 93 L 07/16/23 20:45 78 119/71 07/16/23 20:00 98.9 F 80 20 104/68 95 07/16/23 17:15 138 H 127/85 07/16/23 17:00 99.1 F 135 H 20 139/84 94 L 07/16/23 12:58 98.2 F 84 19 118/71 98 07/16/23 12:26 20 Intake and Output 07/16/23 07/17/23 07/17/23 22:59 06:59 14:59 Intake Total 250 Balance 250 Intake: Oral 250 Other: Voiding Method Toilet # Voids 2 2 Results 07/16/23 06:20 07/16/23 06:20 Cardiac Enzymes 07/16/23 07/16/23 07/16/23 Range/Units 06:20 19:21 22:10 AST 35 (14-36) U/L Troponin I 0.017 0.031 (0.000-0.034) ng/mL 07/17/23 Range/Units 01:01 AST (14-36) U/L Troponin I 0.033 (0.000-0.034) ng/mL CBC 07/16/23 Range/Units 06:20 WBC 17.00 H (4.50-10.00) X 10*3/uL RBC 3.30 L (4.10-5.20) X 10*6/uL Hgb 10.3 L (12.0-15.0) g/dL Hct 32.1 L (37.2-46.3) % Plt Count 155 (140-440) X 10*3/uL Comprehensive Metabolic Panel 07/16/23 Range/Units 06:20 Sodium 137 (137-145) mmol/L Potassium 3.8 (3.5-5.1) mmol/L Chloride 101 (98-107) mmol/L Carbon Dioxide 26 (22-30) mmol/L BUN 15 (7-17) mg/dL Creatinine 0.63 (0.52-1.04) mg/dL Glucose 137 H (74-99) mg/dL Calcium 8.4 (8.4-10.2) mg/dL AST 35 (14-36) U/L ALT 19 (4-34) U/L Alkaline Phosphatase 41 (38-126) U/L Total Protein 6.4 (6.3-8.2) g/dL Albumin 3.9 (3.5-5.0) g/dL Current Medications Generic Name Dose Route Start Last Admin Trade Name Freq PRN Reason Stop Dose Admin Hydrocodone Bitart/Acetaminophen 1 each 07/15/23 10:31 07/17/23 07:37 Hydrocodone/Apap 5-325mg 1 Each Tab PO 08/14/23 10:32 1 each Q4HR PRN Administration Pain Benzocaine/Menthol 1 each 07/15/23 10:31 Benzocaine/Menthol Lozeng 1 Each Lozenge MUCOUS MEM 08/14/23 10:32 Q4HR PRN Sore Throat Cyclobenzaprine HCl 10 mg 07/15/23 10:31 Cyclobenzaprine 10 Mg Tab PO 08/14/23 10:32 TID PRN Muscle Spasm Hydromorphone HCl 0.5 mg 07/15/23 10:31 Hydromorphone 0.5 Mg/0.5 Ml Syringe IVP 08/14/23 10:32 Q4HR PRN Pain Hydromorphone HCl 1 mg 07/15/23 10:31 07/15/23 18:02 Hydromorphone 1 Mg/Ml 1 Ml Syringe IVP 08/14/23 10:32 1 mg Q4HR PRN Administration Pain Lactated Ringer's 1,000 mls @ 20 mls/hr 07/15/23 05:51 07/17/23 00:20 Lactated Ringers IV 08/14/23 05:52 Not Given .Q24H ABBE Sodium Chloride 1,000 mls @ 75 mls/hr 07/15/23 10:45 07/17/23 00:32 Saline 0.9% IV 08/14/23 10:46 75 mls/hr .[id number] ABBE Administration Lidocaine HCl 0.1 ml 07/15/23 05:51 Lidocaine 1% (10mg/Ml) For Iv Start INTRADERMA 08/14/23 05:52 PER PROTOCOL PRN IV Start Magnesium Hydroxide 2,400 mg 07/15/23 10:31 Magnesium Hydroxide 2,400 Mg/30 Ml Cup PO 08/14/23 10:32 DAILY PRN Constipation Ondansetron HCl 4 mg 07/15/23 10:31 07/15/23 23:19 Ondansetron 4 Mg/2 Ml Vial IVP 08/14/23 10:32 4 mg Q8HR PRN Administration Nausea And Vomiting Senna/Docusate Sodium 1 each 07/16/23 09:00 07/17/23 07:38 Sennosides-Docusate Sodium 1 Each Tab PO 08/15/23 09:01 1 each DAILY ABBE Administration Intake and Output 07/16/23 07/17/23 07/17/23 22:59 06:59 14:59 Intake Total 250 Balance 250 Intake: Oral 250 Other: Voiding Method Toilet # Voids 2 2 07/16/23 06:20 07/16/23 06:20
[2023-07-17 11:04] LABS: HCT 27.3 % (37.2-46.3); HGB 9.1 g/dL (12.0-15.0); MCHC 33.3 g/dL (32.0-37.0); MCV 96.1 FL (80.0-97.0); Mean Platelet Volume 10.5 FL (9.5-12.2); NRBC Per 100 WBC 0 X 10*3/uL (0.00-0.01); Platelet Count 117 X 10*3/uL (140-440); RBC 2.84 X 10*6/uL (4.10-5.20); RDW 14.2 % (11.5-14.5); WBC 14.25 X 10*3/uL (4.50-10.00)
[2023-07-17 11:16] LABS: ALT 19 U/L (8-44); AST 32 U/L (13-35); Albumin 3.6 g/dL (3.8-4.9); Alkaline Phosphatase 39 U/L (41-126); Blood Urea Nitrogen 12.6 mg/dL (9.0-27.0); Carbon Dioxide 24.4 mmol/L (21.6-31.8); Chloride 102 mmol/L (96-109); Globulin 1.8 g/dL (1.6-3.3); Glucose 115 mg/dL (70-110); Potassium 3.6 mmol/L (3.5-5.5); Sodium 135 mmol/L (135-145); Total Bilirubin 0.7 mg/dL (0.3-1.2); Total Protein 5.4 g/dL (6.2-8.2)
--- NOTE | 2023-07-17 15:16 | P.PN ---
Subjective Progress Note Date: 07/17/23 History of Presenting Illness: Patient is a very pleasant 72-year-old female with past medical history of osteoarthritis and hepatitis C previously treated. She is currently admitted u [facility] orthopedic surgery team status post elective laminectomy and decompression of L4 through L5 with wide bilateral foraminotomy for decompression and fusion. Surgical procedure was completed earlier today by Dr. Godinez. We have been consulted for medical management throughout patient's hospitalization. Physical exam: Patient seen and fully evaluated at bedside this morning. Patient doing well this morning. She has converted back into normal sinus rhythm. She continues to deny having any complaints including headache, lightheadedness, dizziness, chest pain, palpitations, shortness of breath, or experiencing any numbness/tingling/weakness/swelling in her extremities. Vital signs reviewed and stable. General: Nontoxic, no distress and appears stated age. Derm: Skin warm and dry, normal coloration for ethnicity. Head: Atraumatic, normocephalic and symmetric. C-collar remains in place. Eyes: EOMs intact, no lid lag, and anicteric sclera Mouth: no lip lesions, mucus membranes moist Cardiovascular: regular rate and rhythm with normal S1S2, systolic murmur, positive posterior tibial pulses bilaterally, and cap refill < 2 seconds. Lungs: Respirations even, regular, and unlabored on room air. Lungs CTA bilaterally, no rhonchi, no rales, no wheezing, and no accessory muscle usage. Abdominal: soft, nontender to palpation, no guarding, no appreciable organomegaly. Ext: ROM intact. No gross muscle atrophy, no edema, no contractures Neuro: Speech clear, face symmetrical and CN II-XII grossly intact with no noted focal neuro deficits Psych: Alert and oriented to person, place, time, and situation. Appropriate and pleasant affect. Assessment and Plan of Care: New onset atrial fibrillation with RVR -Patient went into A. fib RVR last night. She does not have a history of atrial fibrillation or atrial flutter and was asymptomatic to this event. -Patient given metoprolol 50 mg orally resulting in control of ventricular rate in converting back into normal sinus mechanism. -Cardiology evaluated recommending patient continue metoprolol 25 mg twice daily and starting patient on Eliquis 5 mg twice daily secondary to [id number] score of 2. -Echocardiogram completed showing preserved EF of 55-60% with mild mitral and tricuspid regurgitation and mild to moderate aortic regurgitation. Acute postoperative blood loss anemia -Stable and expected finding with postoperative hemoglobin of 9.1 and preoperative hemoglobin of 11.8. -There is no signs of active bleeding, no need for transfusion or any further interventions at this time. No need to repeat testing. Postoperative leukocytosis, reactive secondary to surgical procedure and improving -WBC count 14.25, preoperative labs show WBC count of 6.21. -Leukocytosis is believed to be reactive secondary to surgical procedure. No signs of infection and no need for further intervention at this time. History of hepatitis C -Status post treatment, liver enzymes reviewed and are unremarkable. Osteoarthritis Status post laminectomy and decompression of L4 through L5 with wide bilateral foraminotomy for decompression and fusion. -Management per primary admitting orthospine surgery team including DVT prop hylaxis, wound/dressing/drain management, and pain management. Data reviewed: -Vital signs reviewed and stable with blood pressure 126/77, heart rate 74, res piratory rate 19, temperature 97.6F, SpO2 of 95% on room air. -Morning labs reviewed and stable. CBC showing improvement of leukocytosis with WBC count of 14.5 and stable normocytic anemia with hemoglobin of 9.1. BMP unremarkable. Magnesium 2.0. Troponins trended overnight resulting at 0.017, 0.031, and 0.033. Patient has been cleared from cardiac perspective, recommending outpatient follow-up in their office in two weeks. Medically, patient is optimized for discharge home and prescriptions for Metoprolol and Eliquis were sent to pharmacy at this time. Patient may be discharged once cleared by primary admitting orthospine surgery team. Thank you for allowing us to participate in the care of this pleasant patient. Do not hesitate to contact us with questions. Someone can be reached from the [facility] [place]Note 2[place] hospitalist group all hours of the day at [phone] or via [email or web address]. Patient was seen independently by Nurse Practitioner. This document was prepared using [employer] dictation software. Please allow for errors in hoop expander while rare they do occur. Objective - Vital Signs Vital signs: Vital Signs Temp 98.1 F 07/17/23 02:00 Pulse 71 07/17/23 02:00 Resp 20 07/16/23 20:00 BP 113/72 07/17/23 02:00 Pulse Ox 93 L 07/17/23 02:00 FiO2 Intake & Output 07/16/23 07/17/23 07/17/23 18:59 06:59 18:59 Intake Total 500 Balance 500 Intake: Oral 500 Other: Voiding Method Toilet # Voids 2 2 - Labs CBC & Chem 7: 07/17/23 06:48 07/17/23 06:48 Labs: Abnormal Lab Results - Last 24 Hours (Table) 07/16/23 07/16/23 Range/Units 06:20 06:20 WBC 17.00 H (4.50-10.00) X 10*3/uL RBC 3.30 L (4.10-5.20) X 10*6/uL Hgb 10.3 L (12.0-15.0) g/dL Hct 32.1 L (37.2-46.3) % MCV 97.3 H (80.0-97.0) FL Neutrophils # 14.60 H (1.80-7.70) X 10*3/uL Lymphocytes # 0.81 L (0.90-5.00) X 10*3/uL Monocytes # 1.47 H (0.20-1.00) X 10*3/uL Eosinophils # 0 L (0.04-0.35) X 10*3/uL Glucose 137 H (74-99) mg/dL
== END 2023-07-17 14:20 | disposition home or self-care (01) ==
LOC: OR 05:37 → 4SSUR 08:00
PROVIDERS: ADMIT Orthopaedic Surgery Orthopaedic Surgery of the Spine; ATTEND Orthopaedic Surgery Orthopaedic Surgery of the Spine
DX: M51.16 Intervertebral disc disorders with radiculopathy, lumbar region (principal); M43.16 Spondylolisthesis, lumbar region; M48.061 Spinal stenosis, lumbar region without neurogenic claudication; I48.0 Paroxysmal atrial fibrillation; D62 Acute posthemorrhagic anemia; D72.829 Elevated white blood cell count, unspecified; Z86.19 Personal history of other infectious and parasitic diseases; Z87.891 Personal history of nicotine dependence; Z79.01 Long term (current) use of anticoagulants; Z79.899 Other long term (current) drug therapy
CPT/HCPCS: 96376; 96361 ×2; 96365; 96366 ×2; 96375; 94760 ×3; 93306; 97116; 97161; 80053 ×2; 84443; 83735 ×2; 84484 ×2; 85025; 85027; 72100; 22630; 22853; 20931; 20936; G0378 ×3; C1713 ×2; C1762; J2250; J0330; J0690 ×2; J2405; J2001; J3010; J1170 ×2; J2704